=== PATIENT | male | born 1980 | race Caucasian/White ===

== ENCOUNTER 2016-08-11 09:57 | Emergency (ER) | payer OTHER ==
[~2016-08-11] VITALS: Ht 167.6 cm; Wt 81.8 kg
[2016-08-11 10:00] VITALS: TEMP 36.5; Ht 167.6 cm; Wt 81.8 kg
[2016-08-11] MEDS ORDERED: ONDANSETRON INJ 2 MG/ML 2 ML VIAL IV STA (10:07)
[2016-08-11] MEDS ORDERED: MoRPHine SULFATE 4 MG/ML 1 ML CARP\\VIAL IV STA (10:07)
--- NOTE | 2016-08-11 10:13 | EMERGENCY ROOM VISIT NOTE ---
History First contact with patient: 10:01 Chief Complaint: WRIST PAIN Stated Complaint: WRIST INJURY History of Present Illness The patient is a 36 year old male who presents to the Emergency Room with complaints of fall and left wrist injury. The patient was at work on a stepstool, approximately 3-4 feet. The patient fell onto an outstretched left arm. The patient complains of injury and deformity to the left wrist. He received 200 g IV fentanyl en route. He states that it is still painful. He denies numbness. He denies striking his head or having loss of consciousness. He denies any neck pain. He denies any chest pain, trouble breathing, abdominal pain. He denies any pain in the lower extremities. Review of Systems A 10 system review of systems was completed with positives and pertinent negatives listed in the HPI. Past Medical/Surgical History Medical Problems: (1) GERD (gastroesophageal reflux disease) Social History Smoking Status: Current Every Day Smoker Occupation Status: employed Current/Historical Medications Scheduled Omeprazole ([facility]vs Omeprazole), 1 TAB PO DAILY Scheduled PRN Oxycodone/Acetaminophen 5MG/325MG (Percocet 5MG/325MG), 1-2 TABS PO Q4 PRN for Pain Allergies Coded Allergies: No Known Allergies (Unverified , 08/11/16) Physical Exam Vital Signs Date Time Temp Pulse Resp B/P Pulse Ox O2 Delivery O2 Flow Rate FiO2 08/11/16 13:20 80 16 153/100 94 Room Air 08/11/16 11:58 83 18 190/136 96 Room Air 08/11/16 11:13 72 20 197/121 100 Room Air 08/11/16 10:00 36.5 76 18 154/109 96 Room Air Physical Exam VITALS: Vitals are noted on the nurse's note and reviewed by myself. Vital signs stable. GENERAL: This is a 36-year-old male, in no acute distress, nondiaphoretic, well- developed well-nourished. SKIN: There is edema, ecchymosis and superficial abrasion of the left wrist. There are no true open areas and no areas of bleeding. There is no tenting of the skin. Capillary reflex less than 2 seconds. HEAD: Normocephalic atraumatic. EARS: External auditory canals clear, tympanic membranes pearly cantu without erythema or effusion bilaterally. No hemotympanums. No ramirez sign. No mastoid tenderness. EYES: Pupils equal round and reactive to light and accommodation. Conjunctivae without injection, sclerae without icterus. Extraocular movements intact. NOSE: Patent, turbinates without inflammation or discharge. No septal hematoma or bleeding. FACE: No facial tenderness. Full range of motion of the jaw without tenderness. MOUTH: Mucous membranes moist. Pharynx without erythema or exudate. Uvula midline. Airway patent. Tongue does not deviate. NECK: Supple without nuchal rigidity. Cervical spine is nontender. Full range of motion of the neck without tenderness. No JVD. HEART: Regular rate and rhythm without murmurs gallops or rubs. LUNGS: Clear to auscultation bilaterally without wheezes, rales or rhonchi. No retractions or accessory muscle use. No chest tenderness. MUSCULOSKELETAL: There is obvious deformity to the left wrist. The patient is able to move the fingers. Radial pulses 2+. There is no obvious open areas. There is no tenderness over the forearm, elbow or humerus. The remaining extremities are unremarkable. Strength 5/5 throughout. NEURO: Patient was alert and oriented to person place and time. Normal Mini- Mental status exam. No focal neurological deficits. Medical Decision & Procedures ER Provider Diagnostic Interpretation: LEFT WRIST 2 VIEW CLINICAL HISTORY: Post reduction. COMPARISON: Left wrist radiographs August 11, 2016 at 10:19 AM. FINDINGS: Fine detail is diminished due to an overlying cast. A comminuted, displaced distal left radial fracture is noted. Alignment appears improved since prior exam. There is persistent mild angulation and displacement. A possible styloid fracture is noted. IMPRESSION: Improved alignment of the distal left radial fracture status post reduction. Persistent attenuation and displacement, as described above. LEFT WRIST MIN 3 VIEWS ROUTINE CLINICAL HISTORY: /Fall with left wrist pain. COMPARISON STUDY: None. FINDINGS: There is a comminuted and impacted distal left radius fracture which demonstrates both dorsal angulation and displacement. This demonstrates up to 6 mm of dorsal displacement. There is soft tissue swelling within the left wrist. Probable fracture at the ulnar styloid. IMPRESSION: Left distal radius and ulnar styloid fractures as described above. Medications Administered Medications (Trade) Dose Ordered Sig/Hilda Route Start Time Stop Time Status Last Admin Dose Admin Morphine Sulfate (MoRPHine SULFATE INJ) 4 mg NOW STAT IV 08/11/16 10:07 08/11/16 10:09 DC 08/11/16 10:12 4 MG Ondansetron HCl (Zofran Inj) 4 mg NOW STAT IV 08/11/16 10:07 08/11/16 10:09 DC 08/11/16 10:12 4 MG Hydromorphone HCl (Dilaudid Inj) 0.5 mg NOW STAT IV 08/11/16 10:40 08/11/16 10:41 DC 08/11/16 10:44 0.5 MG Hydromorphone HCl (Dilaudid Inj) 1 mg NOW STAT IV 08/11/16 11:05 08/11/16 11:06 DC 08/11/16 11:13 1 MG Hydromorphone HCl (Dilaudid Inj) 1 mg NOW STAT IV 08/11/16 12:34 08/11/16 12:35 DC 08/11/16 12:45 1 MG ED Course The patient was seen and examined. Previous visits were reviewed. The patient sustained a mechanical fall while at work. He had an isolated left wrist fracture. The patient was given 100 g IV fentanyl by EMS. He was given 4 mg IV morphine and 4 mg IV Zofran initially. The patient's pain persisted and he was given a total of 1.5 mg IV Dilaudid. A consultation was placed with Dr. Calvert. The patient was evaluated by Bhupinder Pyle PA-C who performed hematoma block, reduction, splinting. He had ordered an additional 1 mg IV Dilaudid and post reduction film. He recommends discharge with Percocet and follow-up with orthopedics. He also recommends a sling which patient was given. The patient should follow-up with orthopedics. He should return with any worsening symptoms. The case was discussed with Dr. Bolivar who agrees with the assessment and treatment plan. Medical Decision The differential diagnosis includes open fracture, extremity fracture, among others [place] Drug Monitoring Program Search Results: patient reviewed within database, no issues identified Impression Primary Impression: Fracture of left distal radius Additional Impression: Fracture of ulnar styloid Departure Information Dispostion Home / Self-Care Condition GOOD Prescriptions Oxycodone/Acetaminophen 5MG/325MG (PERCOCET 5MG/325MG) Tab 1-2 TABS PO Q4 Y for Pain, #36 TAB For Initial Treatment Prov: Amena Cespedes PA-C 08/11/16 Referrals Hoang Calvert M.D. Patient Instructions ED Fx Forearm Radius Ulna Redu Requ, [facility] Additional Instructions Ibuprofen 600 mg every 6-8 hours for moderate pain Percocet 1-2 tablet every 4-6 hours as needed for worse pain. No driving or alcohol use with Percocet and do not take with Tylenol. Wear the splint until seen by orthopedics. Do not get the splint wet Contact orthopedics to schedule a follow-up appointment for further evaluation and management Off work until cleared by orthopedics Work Instructions Additional Work Instructions: off work until cleared by orthopedics Problem Qualifiers Primary Impression: Fracture of left distal radius Encounter type: initial encounter Fracture alignment: displaced Qualified Codes: S52.502A - Unspecified fracture of the lower end of left radius, initial encounter for closed fracture
[2016-08-11] MEDS ORDERED: OMEP20TA40 PO (10:32)
[2016-08-11] MEDS ORDERED: HYDROmorphone INJ 0.5 MG/0.5 ML SYR IV STA (10:40)
--- NOTE | 2016-08-11 10:44 | DIAGNOSTIC IMAGING REPORT ---
LEFT WRIST MIN 3 VIEWS ROUTINE CLINICAL HISTORY: /Fall with left wrist pain. COMPARISON STUDY: None. FINDINGS: There is a comminuted and impacted distal left radius fracture which demonstrates both dorsal angulation and displacement. This demonstrates up to 6 mm of dorsal displacement. There is soft tissue swelling within the left wrist. Probable fracture at the ulnar styloid. IMPRESSION: Left distal radius and ulnar styloid fractures as described above. Electronically signed by: Nadir Mcmahon M.D. 08/11/2016 10:42 AM Dictated Date/Time: 08/11/2016 10:40 AM
[2016-08-11] MEDS ORDERED: HYDROmorphone INJ 1 MG/ML SYR IV STA ×2 (11:05→12:34)
[2016-08-11] MEDS ORDERED: XYLOCAINE 1%/SOD BICARB 20 ML VIAL INFIL ONE (11:55)
[2016-08-11] MEDS ORDERED: NURSING VERBAL MED ORDER ONE (12:30)
--- NOTE | 2016-08-11 12:55 | DIAGNOSTIC IMAGING REPORT ---
LEFT WRIST 2 VIEW CLINICAL HISTORY: Post reduction. COMPARISON: Left wrist radiographs August 11, 2016 at 10:19 AM. FINDINGS: Fine detail is diminished due to an overlying cast. A comminuted, displaced distal left radial fracture is noted. Alignment appears improved since prior exam. There is persistent mild angulation and displacement. A possible styloid fracture is noted. IMPRESSION: Improved alignment of the distal left radial fracture status post reduction. Persistent attenuation and displacement, as described above. Electronically signed by: Nader Huertas M.D. 08/11/2016 12:53 PM Dictated Date/Time: 08/11/2016 12:51 PM
[2016-08-11] MEDS ORDERED: OXYC-57 PO (13:16)
[2016-08-11 13:20] VITALS: BP 153/100; PULSE 80; O2SAT 94
--- NOTE | 2016-08-11 13:29 | CONSULTATION REPORT ---
DATE OF CONSULTATION: 08/11/2016 CHIEF COMPLAINT: Left wrist pain. HISTORY OF PRESENT ILLNESS: The patient is a 36-year-old male who suffered a fall at work earlier this morning, injuring his left wrist. He denies any other injuries as a result of fall. He denies any head, neck or back pain. He is brought to the [facility] ED for evaluation. X-rays revealed a displaced left wrist fracture. An orthopedics consult was asked for. Currently, the patient is lying in bed and is in moderate amount of discomfort with the left wrist. There is obvious deformity to visualization about the left wrist. He states the fingers are diffusely numb in all the fingers included. He denies any pain proximally to the elbow. The initial x-rays were reviewed and show an impacted, comminuted, dorsally displaced extraarticular distal radius fracture. The decision was made to do a closed reduction. A hematoma block was performed on the left wrist with approximately 8 mL of buffered lidocaine. The patient tolerated the procedure well. After several minutes, the patient's extremity was placed into the finger traps with approximately 15 pounds of weight on the elbow region. After several minutes, a gentle reduction maneuver was performed. Visual improvement of the alignment was noted. A plaster sugar tong splint was applied and molded. Post-reduction x-rays were reviewed, show an improvement in the alignment on the AP view, but there is still dorsal displacement on the lateral view. The patient is currently much more comfortable. This was discussed with him and his . He is likely to require some surgery for the fracture. Dr. Calvert was precision machinist today. I spoke with him. We will have the patient follow up with Dr. Cavlert as an outpatient for definitive orthopedic treatment. A sling will be provided. He has been instructed to ice and elevate. We will give him a prescription for some pain medication and he will follow up with Dr. Calvert in the near future.
== END 2016-08-11 13:51 | disposition home or self-care (01) ==
LOC: C.EDB 09:59
DX: S52.502A Unspecified fracture of the lower end of left radius, initial encounter for closed fracture (principal); S52.612A Displaced fracture of left ulna styloid process, initial encounter for closed fracture; K21.9 Gastro-esophageal reflux disease without esophagitis; W11.XXXA Fall on and from ladder, initial encounter; Y93.89 Activity, other specified; Y92.89 Other specified places as the place of occurrence of the external cause; Y99.0 Civilian activity done for income or pay